=== PATIENT | female | born 1945 | race Caucasian/White ===

== ENCOUNTER 2018-03-08 15:10 | Inpatient (IN) | payer MEDICARE ==
[~2018-03-08] VITALS: Ht 167.6 cm; Wt 71.2 kg
[2018-03-08 15:14] VITALS: BP 150/114
[2018-03-08 15:37] LABS: ABSOLUTE BASOPHILS 0.1 thou/uL (0.0-0.2); ABSOLUTE EOSINOPHILS 0.2 thou/uL (0.0-0.7); ABSOLUTE LYMPHOCYTES 3.8 thou/uL (0.8-5.3); ABSOLUTE MONOCYTES 0.8 thou/uL (0.0-1.2); ABSOLUTE NEUTROPHILS 3.5 thou/uL (1.6-8.1); BASOPHILS 1.4 %; EOSINOPHILS 2.1 %; HEMATOCRIT 47.1 % (37.0-47.0); HEMOGLOBIN 15.8 gm/dL (12.0-15.0); LYMPHOCYTES 44.7 %; MCH 31.2 pg (26.0-34.0); MCHC 33.5 g/dL (28.0-37.0); MCV 93.1 fL (80.0-100.0); MONOCYTES 9.6 %; MPV 9.8 fl. (7.2-11.1); NUCLEATED RBCS 0 /100WBC; PLATELET COUNT* 217 thou/uL (150-400); POLYS 42.2 %; RBC 5.06 mil/uL (4.20-5.00); RDW-CV 14.2 % (10.5-14.5); WBC 8.4 thou/uL (4.0-11.0)
[2018-03-08 15:44] LABS: ANION GAP 8 mmol/L (7-16); BUN 20 mg/dL (7-18); CALCIUM 9.1 mg/dL (8.5-10.1); CHLORIDE 105 mmol/L (98-107); CO2 29 mmol/L (21-32); CREATININE 1.3 mg/dL (0.6-1.3); GLUCOSE 103 mg/dL (70-99); POTASSIUM 3.6 mmol/L (3.5-5.1); SODIUM 142 mmol/L (136-145)
[2018-03-08 15:45] LABS: APTT 26.1 Seconds (25.0-31.3); INR 1.1; PROTIME 10.3 Seconds (9.20-11.50)
[2018-03-08 15:55] LABS: ALBUMIN 4.1 g/dL (3.4-5.0); ALKALINE PHOSPHATASE 100 U/L (46-116); LIPASE 139 U/L (73-393); MAGNESIUM 1.9 mg/dL (1.8-2.4); NT-PRO BRAIN NAT PEPTIDE 1693 pg/mL (<300); SGOT 19 U/L (15-37); SGPT 21 U/L (30-65); TOTAL BILIRUBIN 0.9 mg/dL (<0.1-1.0); TOTAL PROTEIN 8.1 g/dL (6.4-8.2); TROPONIN-I LEVEL <0.06 ng/mL (<0.06)
--- NOTE | 2018-03-08 15:57 | EKG ---
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: BOGDAN : 1945 Requested By: Alistair Mendez Order Number: [id number] MD: Ernesto Kern Measurements Intervals [place] Rate: 143 P: [place]: QRS: -13 QRSD: 116 T: 91 QT: 318 QTc: 491 Interpretive Statements aflutter variable block Nonspecific intraventricular conduction delay Low voltage, extremity leads Repolarization abnormality, prob rate related No previous ECG available for comparison Electronically Signed On 03-08-2018 15:57:00 CDT by Ernesto Kern [email or web address] <ELECTRONICALLY SIGNED> By: Ernesto Kern MD, [facility] 03/08/18 1557 16 16 Ernesto Kern MD, FACC /EPI
[2018-03-08] MEDS ORDERED: LEVOTHYROXINE100 MC1 PO (16:51)
[2018-03-08] MEDS ORDERED: OMEPRAZOLE40 MG PO (16:52)
[2018-03-08] MEDS ORDERED: ZOCOR 20 MG TAB20 M1 PO (16:52)
[2018-03-08 19:39] VITALS: BP 154/91
--- NOTE | 2018-03-08 19:39 | NUR ---
CARDIOLOGY ANSWERING SERVICE CALLED ON ORDERED CONSULT. 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
[2018-03-08 20:00] VITALS: BP 141/98
--- NOTE | 2018-03-08 23:34 | NUR ---
PT ALERT ORIENTED. ADMIT TO 209 AT 1950. TELEMETRY SHOWS AFIB. CARDIZEM QTT AT 5 MG/HR. VOIDS PER BR. INITALLY REFUSED SCDS BUT NOW IS WEARING THEM. DR PICKARD NOTIFIED FOR ANTICOAGULATION ORDERS. NO ORDERS AT THIS TIME. WILL CONTINUE TO MONITOR.
[2018-03-09] VITALS: BP 123/87
[2018-03-09 04:26] VITALS: BP 130/77
--- NOTE | 2018-03-09 05:24 | NUR ---
PT HAD EPISOID OF VOMITING AND HEAD ACHE. DR PICKARD NOTIFIED. ORDERS FOR IBUPROFEN AND ZOFRAN. WAITING FOR PHARMACY TO FILL.
[2018-03-09 07:45] VITALS: BP 112/58
--- NOTE | 2018-03-09 07:45 | NUR ---
ASSUMED PT. CARE AND RECEIVED REPORT AT 729. PT A/OX4, VSS, MONITOR ON TRACING AFIB, RATE CONTROLLED WITH CARDIZEM GTT AT 5ML/HR. PT. DENIES CP/NAUSE AT THIS TIME, HOWEVER C/O HEADACHE. FULL ASSESSMENT COMPLETED, REFER TO CHARTING. DISCUSSED PLAN OF CARE, VERBALIZED UNDERSTANDING. PT. NPO FOR CV CONSULT. CALL LIGHT IN REACH, WILL CONTINUE WITH PLAN OF CARE.
[2018-03-09 12:00] VITALS: BP 129/78
--- NOTE | 2018-03-09 14:40 | NUR ---
Pt is A&O. Resides at home with her , he is at bedside. Independent with ADLS, continues to cook, clean and drive. Pt sleeps with a cpap at night, provided through [facility]. No hx of HH or SNF. Scheduled to have a stress test today. Goal is to [place] at [place], no needs anticipated.
--- NOTE | 2018-03-09 14:45 | 2DMMODE ---
[place] [address] 2 D/M-MODE ECHOCARDIOGRAM Name: SHAWNEE MACARIO Room: [address] IN [facility]#: [id number] Admission: 03/08/18 Attend Phys: Usman Fam Discharge: Date of : 49 Date of Service: 03/09/18 1444 Report #: [id number] THIS REPORT FOR: //name// APPROVED REPORT Study performed: 03/09/2018 11:31:06 EXAM: Comprehensive 2D, Doppler, and color-flow Echocardiogram Patient Location: In-Patient Room #: 209 Status: routine BSA: 1.84 HR: 83 bpm BP: 112/58 mmHg Rhythm: Atrial Fibrillation Other Information Study Quality: Good Indications Atrial Fibrillation Pericardial Effusion 2D Dimensions LVEF(%): 72.14 (>50%) IVSd: 12.65 (7-11mm) LVOT Diam: 20.77 (18-24mm) LVDd: 39.13 mm PWd: 9.61 (7-11mm) Ascending Ao: 33.55 (22-36mm) LVDs: 23.19 (25-40mm) Aortic Root: 32.60 mm Cramer's LVEF: 72.14 % Volumes Left Atrial Volume (Systole) LA ESV Index: 62.60 mL/m2 Aortic Valve AoV Peak Raymundo.: 1.18 m/s AO Peak Gr.: 5.55 mmHg LVOT Max P.52 mmHg AO Mean Gr.: 3.10 mmHg LVOT Mean P.19 mmHg LVOT Max V: 0.79 m/s AO V2 VTI: 22.36 cm LVOT Mean V: 0.50 m/s ROSEANN (VTI): 2.66 cm2 LVOT V1 VTI: 17.59 [place] [address] 2 D/M-MODE ECHOCARDIOGRAM Name: SHAWNEE MACARIO Room: [address] IN [facility]#: [id number] Admission: 03/08/18 Attend Phys: Usman Fam Discharge: Date of : 49 Date of Service: 03/09/18 1444 Report #: [id number] MV Decel. Time: 287.95 ms MV PHT: 83.50 ms MVA (PHT): 2.63 cm2 TDI Medial E' Raymundo.: 0.08 m/s Lateral E' Raymundo.: 0.09 m/s Pulmonary Valve PV Peak Raymundo.: 0.78 m/s PV Peak Gr.: 2.43 mmHg Tricuspid Valve TR Peak Gr.: 25.41 mmHg RVSP: 30.00 mmHg Left Ventricle The left ventricle is normal size. There is normal LV segmental wall motion. There is normal left ventricular wall thickness. Left ventricular systolic function is normal. The left ventricular ejection fraction is within the normal range. LVEF is 55-60%. This study is not technically sufficient to allow evaluation of the LV diastolic function due to atrial fibrillation. Right Ventricle The right ventricle is normal size. The right ventricular systolic function is normal. Atria Left atrium is mildly dilated. The right atrium size is normal. Aortic Valve Mild aortic valve sclerosis. No aortic regurgitation is present. There is no aortic valvular stenosis. Mitral Valve There is mitral annular calcification. Mild mitral regurgitation. No evidence of mitral valve stenosis. Tricuspid Valve The tricuspid valve is normal in structure. Trace tricuspid regurgitation. The RVSP is 30-35 mmHg. Pulmonic Valve The pulmonary valve is normal in structure. [place] [address] 2 D/M-MODE ECHOCARDIOGRAM Name: SHAWNEE MACARIO Room: [address]#: [id number] Admission: 03/08/18 Attend Phys: Usman Fam Discharge: Date of : 49 Date of Service: 03/09/18 1444 Report #: [id number] Great Vessels The aortic root is normal in size. IVC is normal in size and collapses with >50% inspiration Pericardium Mild posterior pericardial effusion. <Conclusion> The left ventricle is normal size. There is normal left ventricular wall thickness. Left ventricular systolic function is normal. The left ventricular ejection fraction is within the normal range. LVEF is 55-60%. This study is not technically sufficient to allow evaluation of the LV diastolic function due to atrial fibrillation. The right ventricle is normal size. Left atrium is mildly dilated. Mild aortic valve sclerosis. No aortic regurgitation is present. There is no aortic valvular stenosis. There is mitral annular calcification. Mild mitral regurgitation. No evidence of mitral valve stenosis. The tricuspid valve is normal in structure. IVC is normal in size and collapses with >50% inspiration Mild posterior pericardial effusion. There is normal LV segmental wall motion. <ELECTRONICALLY SIGNED> By: Pipo Woods MD, FACC 03/09/18 1444 1444 1444 Pipo Woods MD, FACC /INF
--- NOTE | 2018-03-09 17:11 | CARDNUC ---
[place] [address] CARDIAC NUCLEAR IMAGING REPORT Name: SHAWNEE MACARIO Room: [address] IN [facility]#: [id number] Admission: 03/08/18 Attend Phys: Usman Fam Discharge: Date of : 49 Date of Service: 03/09/18 1711 Report #: [id number] THIS REPORT FOR: //name// APPROVED REPORT Study performed: 03/09/2018 11:52:00 Exam: Nuclear Stress Test Indication: chest pain, dyspnea Patient Location: In-Patient Room #: 209 Stress Tech: Miranda Yañez Stress Nurse: Yocasta Garcia RN Ht: 5 ft 6 in Wt: 168 lbs BSA: 1.86 m2 BMI: 27.11 Medical History Medical History: hyperlipidemia, hypertension, a fib Medications: diltiazem, apixaban, atorvastatin Allergies: celecoxib, penicilllin Cardiac Risk Factors: age, hyperlipidemia, hypertension Previous Cardiac Procedures: none Exercise History: Physically active Stress Test Details Stress Test: Pharmacologic stress testing performed using 0.4 mg of regadenoson per 5 mL given IV over 10 seconds. Reason for pharmacologic stress test: physical limitation. Reversal agent Aminophyline 50 mg, given intravenously for hypertension. HR Resting HR: 77 bpm Max Heart Rate (APMHR): 150 bpm Max HR Achieved: 103 bpm Target HR (85% APMHR): 127 bpm % of APMHR: 68 Recovery HR: 89 bpm HR response to stress: Normal HR response to stress BP Resting BP: 123/100 mmHg Max BP: 257/88 mmHg BP response to stress: Abnormal hypertensive response [place] [address] CARDIAC NUCLEAR IMAGING REPORT Name: SHAWNEE MACARIO Room: [address]#: [id number] Admission: 03/08/18 Attend Phys: Usman Fam Discharge: Date of : 49 Date of Service: 03/09/18 1711 Report #: [id number] Resting ECG: Atrial Fibrillation Stress ECG: Atrial Fibrillation ST Change: None Recovery ECG: Atrial Fibrillation Recovery ST Change: None Clinical Reason for Termination: Completed protocol Stress Symptoms: None Exercise duration: 0 min sec Exercise capacity: 1 METs Functional Aerobic Impairment 69% Nurse Comments bps are questionable. Bps took long time to take and high numbers resulted. manual bp taken and 140/82 obtained Stress ECG Conclusion negative ecg for ischemia NM EXAM: Myocardial Perfusion REST/STRESS Imaging Protocol: Rest Tc-99m/Stress Tc-99m 1 day Resting Data Rest SPECT myocardial perfusion imaging was performed in supine position 45 minutes following the intravenous injection of 12 mCi of Tc-99m Sestamibi. Time of rest injection: 1340 Date: 03/09/2018 The images were gated to evaluate regional wall motion and calculate left ventricular ejection fraction. Administration Route: IV Administration Site: Right AC Pharmacologic Stress Pharmacologic stress test was performed by injecting Regadenoson 0.4 mg IV push followed by the intravenous injection of 36 mCi of Tc-99m Sestamibi. Time of stress injection: 1520 Date: 03/09/2018 Administration Route: IV Administration Site: Right AC Gated Stress SPECT was performed 45 minutes after stress injection. The images were gated to evaluate regional wall motion and calculate left ventricular ejection fraction. Prone [place] [address] CARDIAC NUCLEAR IMAGING REPORT Name: SHAWNEE MACARIO Room: [address] IN [facility]#: [id number] Admission: 03/08/18 Attend Phys: Usman Fam Discharge: Date of : 49 Date of Service: 03/09/18 1711 Report #: [id number] Study Quality Study: Fair Artifact: Mild Increased GI uptake Lung Uptake: Normal Study Data At rest, the left ventricular ejection fraction was 64%.. Post stress, the left ventricular ejection was 78%.. SSS: 12 SRS: 10 SDS: 2 TID = 1.01. Perfusion Review of SPECT images reveals a small partially reversible mid lateral defect. It is severe intensity. No other defects are seen. Images were reviewed using Milyoni. Wall Motion mild lateral hypokinesis Nuclear Conclusion ECG Findings: negative for ischemia Clinical Findings: negative for ischemia Nuclear Findings: positive for ischemia Exercise Capacity: not assessed Left Ventricular Function: normal Risk Study: moderate There is a small lateral defect with equal parts of ischemia,and infarct. Normal LV function. <Conclusion> negative ecg for ischemia <ELECTRONICALLY SIGNED> By: Ernesto Kern MD, FACC 03/09/181710 10 10 Ernesto Kern MD, FACC /INF
[2018-03-09 18:30] VITALS: BP 88/50
[2018-03-09 20:00] VITALS: BP 107/63
--- NOTE | 2018-03-09 20:00 | NUR ---
PT. COMPLETED ECHO AND STRESS TEST THIS SHIFT, TOLERATED WELL. CONTINUES TO COMPLAIN OF HEADACHE THIS AFTERNOON, TREATED WITH PO TYLENOL WITH MODERATE RELIEF NOTED. PT. GIVEN FLECANIDE LOADING DOSE. ATTEMPTED TO SWITCH FROM IV CARDIZEM TO PO, HOWEVER AT BP CHECK PRESSURE WAS LOW AT 88/50. IV CARDIZEM STOPPED AND PO HELD AT THIS TIME. PT. REPORTS BEING SLEEPY DURING THIS TIME. HOURLY ROUNDING COMPLETED THROUGH OUT THE DAY FOR PT. SAFETY. BEDSIDE REPORT COMPLETED WITH NOC RN PRECIOUS TO CONTINUE MONITORING. BP SLIGHTLY BETTER AT BEDSIDE REPORT UPON CHECK.
[2018-03-10] VITALS (9 sets, daily range): BP systolic 109–139; BP diastolic 56–91
--- NOTE | 2018-03-10 04:48 | NUR ---
PATIENT PARTIALLY PROGRESSING TOWARDS GOALS: CARDIZEM GTT HAS REMAINED OFF DUE TO SOFT BP'S, HOWEVER, RATE HAS BEEN CONTROLLED WITH PO FLECAINIDE. PATIENT REMAINS ON ROOM AIR WITH SATS >92%. PATIENT'S HEADACHE RELIEVED WITH IBUPROFEN. PATIENT HAS SLEPT A MAJORITY OF SHIFT WITH NO CONCERNS OR REQUESTS. HOURLY ROUNDING OBSERVED. CALL LIGHT WITHIN REACH
--- NOTE | 2018-03-10 18:05 | NUR ---
ASSUMED CARE OF PT THIS AM ASSESSED AND DOCUMENTED. PT IS ON CARDIAC MONITER TRACING AFIB. SHE IS A&O WITH NO C/O PAIN. PT IS UP AD B[place]. VSS WNL. PT IS AFEBRILE AND ON ROOM AIR. EDUCATION GIVEN ON DEMAND. HOURLY ROUNDING COMPLETE.
--- NOTE | 2018-03-10 21:57 | NUR ---
2034 CALLED TO PT ROOM C/O CP SHARP IN MID CHEST RADIATE TO BACK. PLACE PT ON 2L NC PAIN 8/. TOOK SET OF VS SEE INTERVENTIONS. 2044 GIVEN FIRST NITRO SL. PT PAIN AT THE TIME 6/10 MORE LEFT NECK PAIN. PT EKG DONE AT 2045. 2049 ANOTHER NITRO SL GIVEN PAIN NOW /10. 2099 LEFT SHOULDER PAIN /10 ONE MORE NITRO SL GIVEN. CALL PLACED TO [facility]. STILL AWAITING CALL BACK. CHECKED ON PT AGAIN AT 2144 NO PAIN AT ALL. RESTING COMFORTABLE IN BED READING A BOOK.
[2018-03-11 04:00] VITALS: BP 120/52
[2018-03-11 04:20] LABS: ABSOLUTE BASOPHILS 0.1 thou/uL (0.0-0.2); ABSOLUTE EOSINOPHILS 0.2 thou/uL (0.0-0.7); ABSOLUTE LYMPHOCYTES 2.2 thou/uL (0.8-5.3); ABSOLUTE MONOCYTES 0.6 thou/uL (0.0-1.2); ABSOLUTE NEUTROPHILS 3.4 thou/uL (1.6-8.1); BASOPHILS 1.3 %; EOSINOPHILS 3.1 %; HEMATOCRIT 42.2 % (37.0-47.0); HEMOGLOBIN 14.1 gm/dL (12.0-15.0); LYMPHOCYTES 33.6 %; MCH 31.3 pg (26.0-34.0); MCHC 33.4 g/dL (28.0-37.0); MCV 93.5 fL (80.0-100.0); MONOCYTES 9.8 %; MPV 9.6 fl. (7.2-11.1); NUCLEATED RBCS 0 /100WBC; PLATELET COUNT* 182 thou/uL (150-400); POLYS 52.2 %; RBC 4.51 mil/uL (4.20-5.00); RDW-CV 13.8 % (10.5-14.5); WBC 6.5 thou/uL (4.0-11.0)
--- NOTE | 2018-03-11 04:29 | NUR ---
PT CURRENTLY RESTING WITH CPAP ON. PT AFIB/FLUTTER ON MONITOR. PT HAS HAD NO OTHER C/O CP SINCE THAT ONE EPISODE EARLY ON IN SHIFT. PT PENDING AM LABS TO BE REVIEWED.
[2018-03-11 04:53] LABS: ALBUMIN 3.6 g/dL (3.4-5.0); CALCIUM 8.7 mg/dL (8.5-10.1); CREATININE 1.2 mg/dL (0.6-1.3); MAGNESIUM 1.9 mg/dL (1.8-2.4); TOTAL BILIRUBIN 0.8 mg/dL (<0.1-1.0); TOTAL PROTEIN 6.7 g/dL (6.4-8.2)
[2018-03-11 06:19] VITALS: BP 124/79
[2018-03-11 07:58] VITALS: BP 126/87
[2018-03-11 11:25] VITALS: BP 98/59
--- NOTE | 2018-03-11 12:44 | NUR ---
CALLED PHARMACY SPOKE WITH MEGAN. HUERTA GENERIC TOMER ON DEC.
--- NOTE | 2018-03-11 13:21 | EKG ---
[place] [address] ELECTROCARDIOGRAM REPORT Name: SHAWNEE MACARIO Room: [address] ADM IN .R.#: [id number] Admission: 03/08/18 Attend Phys: David Darden Discharge: Date of : 49 Report #: [id number] THIS REPORT FOR: //name// 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1945 Requested By: Usman Fam Order Number: [id number] Reading MD: Ernesto Kern Measurements Intervals [place] Rate: 83 P: [place]: QRS: -74 QRSD: 127 T: 77 QT: 449 QTc: 528 Interpretive Statements Atrial flutter IVCD, consider atypical RBBB Inferior infarct, acute Compared to ECG 03/08/2018 15:17:28 Myocardial infarct finding now present Early repolarization no longer present Electronically Signed On 03-11-2018 13:21:15 CDT by Ernesto Kern [email or web address] <ELECTRONICALLY SIGNED> By: Ernesto Kern MD, FAC 03/11/18 1321 45 45 Ernesto Kern MD, [facility] /EPI
[2018-03-11 16:17] VITALS: BP 112/79
--- NOTE | 2018-03-11 17:40 | NUR ---
PT HAS RESTED IN HER ROOM WITH FAMILY AT BEDSIDE. PT HAS NOT C/O PAIN OR NAUSEA. EDUCATION GIVEN ON DEMAND. HOURLY ROUNDING COMPLETE.
[2018-03-11 20:00] VITALS: BP 114/66
[2018-03-12] VITALS (15 sets, daily range): BP systolic 86–135; BP diastolic 52–83
--- NOTE | 2018-03-12 06:10 | NUR ---
PATIENT PROGRESSING TOWARDS GOALS: NO REPORTS OF CHEST PAIN, OR PAIN IN GENERAL, THROUGHOUT SHIFT. PATIENT NPO FOR CARDIAC CATH TODAY. CONSENT SIGNED AND IN CHART. PATIENT REMAINS UP AD [place]. 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 HOURLY ROUNDING OBSERVED. CALL LIGHT WITHIN REACH
--- NOTE | 2018-03-12 07:27 | CON ---
[address] [address] CONSULTATION Name: SHAWNEE MACARIO Room: [address] IN .R.#: [id number] Admission: 03/08/18 Attend Phys: David Darden Discharge: Date of : 49 Report #: [id number] THIS REPORT FOR: //name// CC: Ana Laura Fam DATE OF SERVICE: 03/09/2018 REQUESTING PHYSICIAN: Usman Fam DO REASON FOR CONSULTATION: Abnormal CT scan. DISCUSSION: The patient is a very pleasant 72-year-old nonsmoking woman with no prior history of known pulmonary disease. She has generally not felt well for the last several weeks, if not longer. She had been getting evaluated for hematuria, was seeing Dr. Rojas. She had a CT scan done of her abdomen and pelvis on 02/27/2018. Per that report, it did show small bilateral pleural effusions as well as a pericardial effusion. Had septal thickening in the lung bases suggesting interstitial edema. Did have a lesion in her liver. It is unknown if it was potential for a more worrisome mass. She was told to follow up with her primary care physician in regards to the findings noted. She notes she saw a nurse practitioner yesterday. Those findings, she was sent to the Emergency Department. While in the ED, was evaluated and actually found to have atrial fibrillation with a rapid ventricular response. She has no prior history of known pulmonary or heart disease. She is a nonsmoker. She believes she had an echocardiogram 7-8 years ago and things were fine. She has had multiple EKGs over the years given she has had multiple surgeries. She is not aware of any palpitations. She has had some "heaviness." It has been worse over the last couple of weeks. She was attributing it to her CPAP that she wears for her obstructive sleep apnea. Has had just minimal cough. No hemoptysis. Overall, she has felt much more tired and fatigued. When she runs out of energy, when she exerts herself, she is describing it more, just feeling very tired rather than true shortness of breath. No prior history of asthma. She has no prior history of any malignancies. She has had neck surgery, also lumbar spine surgery, bilateral knee surgeries, hysterectomy. She gets regular colonoscopies as she does have polyps, none have been malignant. 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 She has obstructive sleep apnea, has also had carpal tunnel surgery, bunion surgery. HOME MEDICATIONS: Levothyroxine, omeprazole, [place] [address] CONSULTATION Name: SHAWNEE MACARIO Room: [address] IN .R.#: [id number] Admission: 03/08/18 Attend Phys: David Darden Discharge: Date of : 49 Report #: [id number] ALLERGIES: CELEBREX AND PENICILLIN. SOCIAL HISTORY: Nonsmoker. She is . She and her moved here from the [facility] less than a year ago. Before she retired, she worked at [email or web address]. FAMILY HISTORY: Negative for cancers or thromboembolic disease. REVIEW OF SYSTEMS: A 12-point ROS was done. Note positives above. She notes she is always "clammy." No documented fevers. Appetite has been fair. Denies any difficulty swallowing. Has had the hematuria as noted. No issues with swelling in lower extremities and no palpitations. No syncopal episodes. She does have some chronic arthritic pain in her knees. She has had some heaviness in her chest, she points to the anterior and some over to the left side. PHYSICAL EXAMINATION: GENERAL APPEARANCE: The patient is a woman who looks stated age. Alert, cooperative. She is in no acute distress at rest. is at the bedside. HEENT: Head is normocephalic. Sclerae are nonicteric. Mucous membranes are moist. NECK: Negative for adenopathy. Neck veins are not prominent. Trachea is midline. There is no stridor heard. HEART: Irregularly irregular. No S3 is heard. LUNGS: Reveal a few bibasilar crackles. No wheezing is heard. Excursion is equal. No dullness to percussion. ABDOMEN: Soft, without appreciable hepatosplenomegaly. There is no guarding or rebound tenderness. No clubbing. Radial pulses are present. Lower extremities are negative for any significant edema. No calf tenderness. She does have SCDs in place. LABORATORY DATA AND X-RAY FINDINGS: I did review the report of her CT abdomen and pelvis, which was done through the urologist's office on 02/27/2018. Chest x-ray done yesterday, which was a portable study showed cardiomegaly, but no other acute findings noted. A CT angiogram was done. No pulmonary emboli were seen. Does have pericardial effusion noted. No masses noted. Does not have any significant pleural effusions. Does have some mild peribronchial thickening. She does reflux contrast into the inferior vena cava. IMPRESSION: 1. Atrial fibrillation/flutter with rapid ventricular response. Heart rate is down this morning. 2. Pericardial effusion. Etiology not clear. No underlying history of prior issues related to malignant causes. Possibly could be viral. 3. History of hematuria, had been ongoing evaluation with urology. 4. History of sleep apnea, compliant with CPAP. [facility] [address] [place] [address] CONSULTATION Name: MACARIOSHAWNEE S Room: [address] IN [facility].#: [id number] Admission: 03/08/18 Attend Phys: David Darden Discharge: Date of : 49 Report #: [id number] RECOMMENDATIONS: 1. Needs echocardiogram done. 2. Agree with cardiology seeing the patient. 3. We will also assess NATA, rheumatoid factor, CRP. 4. Findings in her lungs are fairly nonspecific, probably related to whatever is triggering her cardiac arrhythmias and pericardial effusion. 5. Continue with home CPAP unit while sleeping. <ELECTRONICALLY SIGNED> By: Collette Robles MD 03/12/18 0727 1116 1942Collette Robles MD /nt
--- NOTE | 2018-03-12 14:55 | NUR ---
Pt scheduled for BRIANNE tomorrow, cath completed today.
--- NOTE | 2018-03-12 15:43 | NUR ---
RECEIVED REPORT FROM PRECIOUS FRANKLIN. ASSUMED CARE OF PT AROUND 0730. PT A&O X4, VSS, O2 SAT 93% ON RA. 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 AM ASSESSMENT AND VITALS COMPLETED CHARTED. IV TO RIGHT AC INTACT AND INFUSING IVF. PT WENT DOWN TO CARDIAC CATH THIS AM, ACCESS THROUGH RIGHT RADIAL. SITE IS DRY, FREE FROM BLEEDING. VASC BAND NOW HAS ALL AIR LET OUT, IN PROCESS OF REMOVING BAND PER PROTOCOL. VITALS PER PROTOCOL, SEE CHARTING. PT NOTED TO HAVE SOFT BP'S POST CATH - LOWEST DROPPED TO 86/54 AND HEART RATE HAS DROPPED INTO THE HIGH 30'S SEVERAL TIMES. PT FEELS LIGHT HEADED AND HAS HEADACHE. SPOKE TO HALEY DOE PSYCHIATRIC NP ON PHONE - SHE CAME TO SEE PT AND NOTIFIED DR MURRAY. ORDERS RECEIVED FOR 500ML FLUID BOLUS. PT GIVEN TYLENOL FOR HEADAHCE, AWAITING REASSESSMENT. PT EATING AND DRINKING WITHOUT ISSUE. PLAN IS FOR PT TO HAVE BRIANNE AND CARDIOVERSION TOMORROW. PT CURRENTLY RESTING IN BED. CALL LIGHT IS WITHIN REACH. FALL PRECAUTIONS ARE IN PLACE, LOW RISK. HORULY ROUNDING PERFORMED. WCTM.
--- NOTE | 2018-03-12 18:57 | NUR ---
PT HEADACHE RESOLVED WITH THE PO TYLENOL. DIZZINESS HAS SUBSIDED. BP UP TO NORMAL RANGE AND STABLE NOW. PT REMAINS A&OX4. AT BEDSIDE. PT EATING AND DRINKING WITHOUT ISSUE. VASCBAND NOW OFF AND GAUZE WITH TEGADERM APPLIED. SITE REMAINS FREE FROM BLEEDING. LIMB ALERT PLACED ON RIGHT ARM. PT UP TO BATHROOM TO VOID, NO ISSUES. PT REQUESTING LAXATIVE - WILL GIVE. IV SALINE LOCKED. PT CURRENTLY SITTING UP IN BED WORKING ON A CROSSWORD PUZZLE. LOW FALL RISK PRECAUTIONS IN PLACE. CALL LIGHT IS WITHIN REACH. HOURLY ROUNDING PERFORMED.
[2018-03-12 19:11] LABS: ANA INTERPRETATION Negative (())
--- NOTE | 2018-03-12 19:18 | CARD ---
[address] [address] CARDIAC CATH REPORT Name: MACARIOSHAWNEE Екатерина Room: [address] IN [facility]#: [id number] Admission: 03/08/18 Attend Phys: David Darden Discharge: Date of : 49 Report #: [id number] THIS REPORT FOR: //name// APPROVED REPORT Study performed: 03/12/2018 11:19:20 Patient Details Patient Status: In-Patient Room #: The patient is a 72 year-old female Event Personnel Gonzalez Michelle Junior Recruiter, Marlyn Jj RN Light Rail Signal Technician, Konrad Shaffer (R) Ziggy Diaz Mindy RTR Monitor Procedures Performed Art Access - R radial artery Left Heart Cath w/LT VGram [id number] LHCLV Hemostasis with Hemoband Indication Atrial fibrillation, Positive stress test Risk Factors Hypercholesterolemia Admission/Lab Medications/Medications given during procedure Heparin Unfract. Procedure Narrative The patient was brought electively to the Cardiac Catheterization Laboratory and was prepped and draped in a sterile manner. The right wrist was infiltrated with 1% Lidocaine subcutaneous anesthesia. A Slender Glidesheath sheath was inserted into the right radial artery. Coronary angiography was performed using coronary diagnostic catheters. The right coronary system was accessed and visualized with a 6FR JR4 catheter. The left coronary system was accessed and visualized with a 6FR JL4 catheter. The left ventricle was accessed and visualized with a 6FR Pigtail catheter. Left ventricular/Aortic Valve gradient assessed via catheter pullback. Left ventriculogram was performed in CHEW projection. Closure device was deployed with a 6 Fr vascband. The patient tolerated the procedure well and there were no complications associated with the procedure. [place] [address] CARDIAC CATH REPORT Name: SHAWNEE MACARIO Екатерина Room: [address]#: [id number] Admission: 03/08/18 Attend Phys: David Darden Discharge: Date of : 49 Report #: [id number] Intraoperative Conscious Sedation Sedation start time: 11:50 Case end Time: 12:15 Fentanyl 25 mcg Versed 2 mg Fluoro Time: 2.4 minutes Dose: DAP 25991 cGycm2 624.85 mGy Contrast Type and Amount: Visipaque 130 ml Diagnostic Cath Left Main 0% stenosis LAD 30% distal stenosis Diagonal 1 60% proximal stenosis Circumflex 0% stenosis Right Coronary 30% mid stenosis Left Ventriculography The left ventricle is normal in size with normal contractility. The left ventricular ejection fraction is estimated to be 60-65%. Left ventricular wall motion abnormalities are not present. There is no mitral insufficiency. Hemodynamics The aortic pressure is 106/64 mmHg with a mean of 82 mmHg. The left ventricular pressure is 101/0 mmHg with a mean of mmHg. The left ventricular end diastolic pressure is 8 mmHg. There was no gradient across the aortic valve upon pullback. Pullback from the left ventricle to the aorta revealed no gradient across the aortic valve. Conclusion 1. mild cad with a 60% stenosis noted of the diagonal branch of the lad Recommendations Aggressive Medical Therapy <ELECTRONICALLY SIGNED> By: Gonzalez Michelle MD, [facility] 03/12/181917 17 17Dakenyon Michelle MD, [facility] /INF
[2018-03-13] VITALS (16 sets, daily range): BP systolic 98–154; BP diastolic 44–97
--- NOTE | 2018-03-13 04:39 | NUR ---
PATIENT PROGRESSING TOWARDS GOALS: PATIENT DENIES PAIN AND DISCOMFORT THIS SHIFT. ON ROOM AIR WITH SATS >92%. VSS. NPO FOR BRIANNE CARDIOVERSION 03/13. RIGHT RADIAL CATH SITE DRESSING C/D/I. PATIENT COMPLIANT WITH POST RADIAL CATH PRECAUTIONS. HOURLY ROUNDING OBSERVED. CALL LIGHT WITHIN REACH
--- NOTE | 2018-03-13 17:16 | TEE ---
[place] [address] TRANSESOPHAGEAL ECHOCARDIOGRAM Name: SHAWNEE MACARIO Room: [address] IN [facility]#: [id number] Admission: 03/08/18 Attend Phys: Usman Fam Discharge: Date of : 49 Date of Service: 03/13/18 1715 Report #: [id number] THIS REPORT FOR: //name// APPROVED REPORT Study performed: 03/13/2018 16:06:33 EXAM: Transesophageal Echocardiogram Patient Location: In-Patient Room #: [facility] Status: routine BSA: 1.85 HR: 102 bpm BP: 153/96 mmHg Rhythm: Atrial Fibrillation Other Information Study Quality: Good Indications Atrial Fibrillation Echo Enhancing Agent Indication: Rule out Shunt Agent(s) / Amount(s) Used: Agitated Saline 10 cc Procedure After obtaining informed consent, patient underwent transesophageal echo in the [employer]. Type of Sedation : Conscious Sedation Sedation was administered by Marlyn Jj. Sedation start time: 1605 Case end Time: 1632 Sedation was achieved intravenously with: Versed (3) Fentanyl (50) Transesophageal probe was inserted and advanced into esophagus without difficulty by Tomi Pineda MD, FACC. Echo enhancement indication: R/O Septal defect. Echo enhancement agent administered: Agitated Saline The BRIANNE was performed without complications. Synchronized Cardioversion attempted: Unsuccessful Throughout the procedure, the blood pressure, pulse oximetry, cardiac rhythm, and rate were monitored. The patient tolerated the procedure without adverse effects. Recovery from conscious sedation was uneventful [place] [address] TRANSESOPHAGEAL ECHOCARDIOGRAM Name: SHAWNEE MACARIO Room: [address]#: [id number] Admission: 03/08/18 Attend Phys: Usman Fam Discharge: Date of : 49 Date of Service: 03/13/18 1715 Report #: [id number] Left Ventricle The left ventricle is normal size. There is normal LV segmental wall motion. Mild to moderate concentric left ventricular hypertrophy. Left ventricular systolic function is normal. LVEF is 60-65%. Right Ventricle The right ventricle is normal size. The right ventricular systolic function is normal. Atria There is no mass or thrombus suspected in the left atrium. Interatrial septum is intact without evidence of ASD or PFO. The right atrium size is normal. Aortic Valve The aortic valve is normal in structure. No aortic regurgitation is present. There is no aortic valvular stenosis. Mitral Valve The mitral valve is normal in structure. Mild to moderate mitral regurgitation. No evidence of mitral valve stenosis. Tricuspid Valve The tricuspid valve is normal in structure. Trace tricuspid regurgitation. Pulmonic Valve The pulmonary valve is normal in structure. There is no pulmonic valvular regurgitation. Great Vessels The aortic root is normal in size. Pericardium There is no pericardial effusion. <Conclusion> The left ventricle is normal size. Mild to moderate concentric left ventricular hypertrophy. Left ventricular systolic function is normal. LVEF is 60-65%. [place] [address] TRANSESOPHAGEAL ECHOCARDIOGRAM Name: SHAWNEE MACARIO Room: [address] IN [facility]#: [id number] Admission: 03/08/18 Attend Phys: Usman Fam Discharge: Date of : 49 Date of Service: 03/13/181714 Report #: [id number] Interatrial septum is intact without evidence of ASD or PFO. No thrombus is visualized in the left atrium or appendage. <ELECTRONICALLY SIGNED> By: Tomi Pineda MD, FACC 03/13/181714 14 14 Tomi Pineda MD, FACC /INF
--- NOTE | 2018-03-13 18:44 | NUR ---
RECEIVED REPORT FROM PRECIOUS FRANKLIN. ASSUMED CARE OF PT AROUND 0730. PT A&O X4, VSS, O2 SAT 95% ON RA. FENCE ERECTOR SUPERVISOR IN PLACE TRACING AFLUTTER WITH NO CHANGES THIS SHIFT. AM ASSESSMENT AND VITALS COMPLETED CHARTED. IV TO RIGHT AC INTACT AND SALINE LOCKED. PT WENT DOWN FOR BRIANNE AND CARDIOVERSION LATE THIS AFTERNOON. CARDIOVERSION WAS UNSUCCESSFUL. PT TO REMAIN OVERNIGHT FOR OBSERVATION. PT ABLE TO EAT DINNER WITH NO ISSUES. PT ABLE TO BE UP AD [place]. PT VOIDING WITHOUT ISSUE. HAS BEEN AT BEDSIDE THROUGHOUT THE SHIFT. PT HAS DENIED PAIN OR DISCOMFORT THIS SHIFT. PT CURRENTLY SITTING UP IN BED VISITING WITH GRANDDAUGHTERS. LOW FALL RISK PRECAUTIONS IN PLACE. CALL LIGHT IS WITHIN REACH, HOURLY ROUNDING PERFORMED.
[2018-03-14 00:28] VITALS: BP 144/102
--- NOTE | 2018-03-14 03:13 | NUR ---
PT ALERT ORIENTED. UP AD [place] IN ROOM. R RADIAL DRSG D/I. R ARM LIMB ALERT ON. TELEMETRY SHOWS AFIB/FLUTTER. WILL CONTINUE TO MONITOR.
[2018-03-14 03:56] VITALS: BP 129/89
[2018-03-14 08:03] VITALS: BP 121/91
[2018-03-14 12:02] VITALS: BP 107/82
[2018-03-14 12:55] VITALS: BP 126/79
[2018-03-14] MEDS ORDERED: FLECAINIDE ACET50 M1 PO (14:17)
[2018-03-14] MEDS ORDERED: COLACE100 MG PO (14:18)
[2018-03-14] MEDS ORDERED: ELIQUIS5 MG PO (14:19)
[2018-03-14] MEDS ORDERED: CARDIZEM CD120 MG PO (14:20)
[2018-03-14] MEDS ORDERED: TYLENOL325 MG PO (14:24)
--- NOTE | 2018-03-14 15:31 | NUR ---
ASSUMED CARE OF PT AT 0715 THIS MORNING AFTER GETTING BEDSIDE REPORT FORM CLAIMS ADMINISTRATOR NURSE. PT CONTINUED TO BE A&O X4 CALM AND COOPERATIVE. PT VSS ON ROOM AIR TRACING A FIB ON THE MONITOR. PT HAD NO C/O PAIN OR DISTRESS TODAY. PT WAS DISCHARGED HOME TO SELF CARE. PT AND VERBALIZED UNDERSTANDING OF DC INSTRUCTIONS THAT INCLUDED F/U CARE AND MEDICATION MANAGEMENT. IV AND LOADING UNIT OPERATOR SEATING REMOVED PRIOR TO DISCHARGE. PT TOOK ALL PERSONAL BELONGINGS AND ALL PRESCRIPTIONS AT TIME OF DISCHARGE.
[2018-04-04] MEDS ORDERED: MULTAQ 400 MG400 MG PO (09:59)
[2018-05-24] MEDS ORDERED: PACERONE 200 M200 M1 PO (11:43)
== END 2018-03-14 15:00 | disposition home or self-care (01) | DRG 286 ==
LOC: M.ERS 15:10 → M.TBA-ER 16:33 → M.2W 16:33
PROVIDERS: Emergency Medicine Emergency Medical Services; Internal Medicine Critical Care Medicine; Internal Medicine Pulmonary Disease; ADMIT Internal Medicine
PROC: B2151ZZ Fluoroscopy of Left Heart using Low Osmolar Contrast (ICD-10-PCS; principal; 2018-03-12)
PROC: 4A023N7 Measurement of Cardiac Sampling and Pressure, Left Heart, Percutaneous Approach (ICD-10-PCS; principal; 2018-03-12)
PROC: B2111ZZ Fluoroscopy of Multiple Coronary Arteries using Low Osmolar Contrast (ICD-10-PCS; principal; 2018-03-12)
DX: I48.1 Persistent atrial fibrillation (principal); I50.33 Acute on chronic diastolic (congestive) heart failure; D68.59 Other primary thrombophilia; I31.3 Pericardial effusion (noninflammatory); G47.33 Obstructive sleep apnea (adult) (pediatric); D49.2 Neoplasm of unspecified behavior of bone, soft tissue, and skin; E78.5 Hyperlipidemia, unspecified; E03.9 Hypothyroidism, unspecified; I10 Essential (primary) hypertension; R32 Unspecified urinary incontinence; B19.20 Unspecified viral hepatitis C without hepatic coma; I25.10 Atherosclerotic heart disease of native coronary artery without angina pectoris; R31.9 Hematuria, unspecified; Z88.3 Allergy status to other anti-infective agents; Z88.0 Allergy status to penicillin; Z90.710 Acquired absence of both cervix and uterus; Z98.890 Other specified postprocedural states; Z79.01 Long term (current) use of anticoagulants; Z79.899 Other long term (current) drug therapy

== ENCOUNTER → 2018-04-20 | Outpatient (CLI) | payer MEDICARE ==
[~2018-04-20] MED LIST: CARDIZEM CD120 MG PO; COLACE100 MG PO; ELIQUIS5 MG PO; FLECAINIDE ACET50 M1 PO; LEVOTHYROXINE100 MC1 PO; LIPITOR 20 MG T20 M1 PO; MULTAQ 400 MG400 MG PO; OMEPRAZOLE40 MG PO; PACERONE 200 M200 M1 PO; TYLENOL325 MG PO; ZOCOR 20 MG TAB20 M1 PO
[2018-04-20 10:30] LABS: INR 1.1; PROTIME 10.7 Seconds (9.20-11.50)
[2018-04-21 05:11] LABS: HEPATITIS B SURFACE AG Negative (Negative)
[2018-04-23 13:07] LABS: ANA INTERPRETATION Negative (Negative)
== END ==
LOC: M.MRI 07:46
PROVIDERS: Nurse Practitioner Family
DX: I31.3 Pericardial effusion (noninflammatory) (principal); K76.9 Liver disease, unspecified; I48.0 Paroxysmal atrial fibrillation; R79.89 Other specified abnormal findings of blood chemistry; E11.9 Type 2 diabetes mellitus without complications; J44.9 Chronic obstructive pulmonary disease, unspecified; I10 Essential (primary) hypertension; Z90.710 Acquired absence of both cervix and uterus; R93.8 Abnormal findings on diagnostic imaging of other specified body structures

== ENCOUNTER 2018-07-13 09:55 | Inpatient (IN) | payer MEDICARE ==
[~2018-07-13] VITALS: Ht 165.1 cm; Wt 76.7 kg
[2018-07-13] VITALS (7 sets, daily range): BP systolic 116–143; BP diastolic 61–82
[~2018-07-13 09:55] MED LIST changes: -LIPITOR 20 MG T20 M1 PO
[2018-07-13] MEDS ORDERED: LIPITOR 20 MG T20 M1 PO (13:06)
[2018-07-13 13:09] LABS: HEMATOCRIT 40.7 % (37.0-47.0); HEMOGLOBIN 13.7 gm/dL (12.0-15.0); MCH 32.1 pg (26.0-34.0); MCHC 33.7 g/dL (28.0-37.0); MCV 95.3 fL (80.0-100.0); MPV 9.5 fl. (7.2-11.1); RBC 4.26 mil/uL (4.20-5.00); WBC 6.1 thou/uL (4.0-11.0)
[2018-07-13 13:26] LABS: CALCIUM 8.6 mg/dL (8.5-10.1); CREATININE 1.3 mg/dL (0.6-1.3); POTASSIUM 3.9 mmol/L (3.5-5.1)
[2018-07-13 13:31] LABS: ALBUMIN 3.9 g/dL (3.4-5.0); TOTAL BILIRUBIN 0.6 mg/dL (<0.1-1.0); TOTAL PROTEIN 8.2 g/dL (6.4-8.2)
[2018-07-13 13:42] LABS: APTT 27.6 Seconds (25.0-31.3); PROTIME 10.7 Seconds (9.20-11.50)
--- NOTE | 2018-07-13 14:03 | EKG ---
[place] [address] ELECTROCARDIOGRAM REPORT Name: SHAWNEE MACARIO Room: [facility]#: [id number] Admission: 07/13/18 Attend Phys: Gonzalez Michelle MD, F Discharge: Date of : 49 Report #: [id number] THIS REPORT FOR: //name// [facility] Test Date: 2018-07-13 Test Time: 13:01:41 Pat Name: SHAWNEE MACARIO Department: Room: Gender: F Channel Sales Manager: [facility] : 1945 Requested By: Gonzalez Michelle Order Number: [id number] Stanislav MD: Gonzalez Michelle Measurements Intervals Elizabeth Rate: 50 P: 8 GA: 164 QRS: -56 QRSD: 106 T: 98 QT: 515 QTc: 470 Interpretive Statements Sinus bradycardia Abnormal R-wave progression, early transition Lateral leads are also involved Compared to ECG 03/10/2018 20:46:21 Atrial flutter no longer present Electronically Signed On 07-13-2018 14:03:30 CDT by Gonzalez Michelle [email or web address] <ELECTRONICALLY SIGNED> By: Gonzalez Michelle MD, [facility] 07/13/18 1403 1301 1301 Gonzalez Michelle MD, [facility] /EPI
--- NOTE | 2018-07-13 18:40 | NUR ---
RECEIVED REPORT FROM RESTAURANT CULINARY MANAGER. PT TRANSFERED TO [facility] FLOOR AROUND 1700. PT A&OX4. VSS. O2 SAT 91% ON RA. SOLE ROUGHER PLACED TRACING SR, PACEMAKER BOX CHECKED ON MONITOR. NO PACER SPIKES NOTED ON MONITOR. ADMISSION ASSESSMENT, HISTORY AND EDUCATION COMPLETED CHARTED. IV TO LEFT AC INTACT AND SALINE LOCKED. PT REPROTED LEFT CHEST/SHOULDER PAIN THAT IS BEING MANAGED WITH PO PAIN MEDICATION. AT BEDSIDE. PT ABLE TO EAT DINNER WITHOUT ISSUE. INCISION SITE TO LEFT CHEST WELL APPROXIMATED, PINK, HEALING, SEALED WITH DERMABOND. PT WEARING ARM SLING ON LEFT ARM. POST PROCEDURE VITALS PER CHARTING. PT ORIENTED TO ROOM, BED AND CALL LIGHT. PT CURRENTLY WATCHING TV IN BED. FALL PRECAUTIONS IN PLACE. CALL LIGHT IS WITHIN REACH. HOURLY ROUNDING PERFORMED. WCTM FOR DURATION OF SHIFT.
[2018-07-14] VITALS: BP 154/72
[2018-07-14 04:00] VITALS: BP 158/84
--- NOTE | 2018-07-14 04:54 | NUR ---
ALERT ORIENTED. UP INDEPENDENTLY. L ARM IN SLING. L CHEST WITH BRUSING AND DERMABONDED. TELEMETRY SHOWS SR. PAIN MEDICATION GIVEN TWICE FOR PAIN FROM PACEMAKER SITE.
--- NOTE | 2018-07-14 07:04 | NUR ---
PT HAD EPISOID OF NAUSIA W/ SM AMT EMESIS 10MLS. ZOFRAN ORDER OBTAINED AND GIVEN.
[2018-07-14 08:00] VITALS: BP 126/73
[2018-07-14 09:54] VITALS: BP 126/73
[2018-07-14 11:07] VITALS: BP 126/73
--- NOTE | 2018-07-14 11:52 | NUR ---
ASSUMED CARE OF PT THIS AM ASSESSED AND DOCUMENTED. SEE CHART. PT D/C'D TO HOME. EDUCATION GIVEN REGARDING MEDICATIONS, FOLLOW-UPS, AND DRS ORDERS. ALL BELONGINGS PACKED UP AND LEFT WITH PT ACCOMPANIED BY STADD AND . D/C'D IV AND CARDIAC MONITER.
--- NOTE | 2018-07-15 13:00 | H ---
[place] [address] HISTORY AND PHYSICAL Name: SHAWNEE MACARIO Room: [address] IN ..#: [id number] Admission: 07/13/18 Attend Phys: Gonzalez Michelle MD, F Discharge: 07/14/18 Date of : 49 Report #: [id number] THIS REPORT FOR: //name// CC: Gonzalez Vogel NP DATE OF SERVICE: 07/13/2018 HISTORY OF PRESENT ILLNESS: The patient is a 72-year-old white female who was brought to the outpatient department to undergo placement of a permanent pacemaker. The patient has no previous history of heart disease. She presented this past summer with atrial flutter and was admitted to Section. She had an abnormal nuclear stress test; however, heart catheterization showed minimal coronary artery disease with normal left ventricular function. She then underwent a BRIANNE and underwent cardioversion. She was started on Eliquis and flecainide. She was referred to Dr. Esposito for possible ablation. He attempted cardioversion, which was unsuccessful. She was switched to Multaq and then switched to amiodarone. She underwent repeat cardioversion near the end of April. She converted to sinus rhythm and unfortunately was noted to be significantly bradycardic. Recently, she has had no chest pain, but does note shortness of breath, fatigue and lightheadedness. She was brought to the outpatient department at this time to undergo placement of a permanent pacemaker. She just saw Dr. Esposito 2 weeks ago. At that time, she was in sinus bradycardia with a heart rate in the 40s. 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 She has hyperlipidemia, but no history of hypertension or diabetes. She has sleep apnea and uses CPAP. CURRENT MEDICATIONS: Includes Eliquis, Synthroid, diltiazem, atorvastatin, amiodarone, omeprazole. ALLERGIES: She has an allergy to PENICILLIN. FAMILY HISTORY: Her mother had heart disease. SOCIAL HISTORY: She is . She and her live in [place]. She stays active caring for grandchildren. No smoking or alcohol abuse. REVIEW OF SYSTEMS: She has had no history of stroke. She had asthma as a child. No history of peptic ulcer disease. No history of liver disease, kidney disease, cancer [place] [address] HISTORY AND PHYSICAL Name: SHAWNEE MACARIO Room: [address]#: [id number] Admission: 07/13/18 Attend Phys: Gonzalez Michelle MD, F Discharge: 07/14/18 Date of : 49 Report #: [id number] PHYSICAL EXAMINATION: GENERAL: Revealed a middle-aged female. VITAL SIGNS: Blood pressure 130/70, pulse is 50. HEENT: She is anicteric, conjunctiva pink. Mucous membranes moist. NECK: Veins nondistended. No carotid bruits. CHEST: Clear to auscultation. CARDIOVASCULAR: Regular, bradycardia, no significant murmur. ABDOMEN: Soft. EXTREMITIES: Had no edema. Dorsalis pedis pulse 2+ bilaterally. ECG shows sinus bradycardia. IMPRESSION AND RECOMMENDATIONS: 1. Paroxysmal atrial fibrillation. No structural heart disease. Currently in sinus bradycardia, on amiodarone. The patient's Eliquis is on hold because of need for pacemaker. 2. Sick sinus syndrome. Recommend pacemaker insertion. 3. Hyperlipidemia. The patient is on a statin drug. 4. Sleep apnea. The patient uses CPAP. <ELECTRONICALLY SIGNED> By: Tomi Pineda MD, FACC 07/15/18 1300 1352 1526Gonzalez Michelle MD, FACC /nt
--- NOTE | 2018-07-15 16:59 | EKG ---
[place] [address] ELECTROCARDIOGRAM REPORT Name: SHAWNEE MACARIO Room: [address] DIS IN ..#: [id number] Admission: 07/13/18 Attend Phys: Gonzalez Michelle MD, F Discharge: 07/14/18 Date of : 49 Report #: [id number] THIS REPORT FOR: //name// [facility] Test Date: 2018-07-14 Test Time: 08:10:26 Pat Name: SHAWNEE MACARIO Department: Room: [address] Gender: F Garbage Truck Helper: : 1945 Requested By: Gonzalez Michelle Order Number: [id number] Reading MD: Tomi Pineda Measurements Intervals [place] Rate: 77 P: VT: 160 QRS: -61 QRSD: 96 T: 65 QT: 468 QTc: 530 Interpretive Statements Atrial-paced complexes Left anterior fascicular block Abnormal R-wave progression, early transition Prolonged QT interval Compared to ECG 07/13/2018 13:01:41 Left anterior fascicular block now present Prolonged QT interval now present Sinus bradycardia no longer present Electronically Signed On 07-15-2018 16:59:30 CDT by Tomi Pineda [email or web address] <ELECTRONICALLY SIGNED> By: Tomi Pineda MD, FACC 07/15/18 1659 9 0810 Tomi Pineda MD, FAC /EPI
--- NOTE | 2018-07-15 16:59 | EKG ---
[place] [address] ELECTROCARDIOGRAM REPORT Name: SHAWNEE MACARIO Room: [address] DIS IN [facility].#: [id number] Admission: 07/13/18 Attend Phys: Gonzalez Michelle MD, F Discharge: 07/14/18 Date of : 49 Report #: [id number] THIS REPORT FOR: //name// [facility] Test Date: 2018-07-14 Test Time: 08:09:12 Pat Name: SHAWNEE MACARIO Department: Room: [address] Gender: F Pier Master Assistant: : 1945 Requested By: Gonzalez Michelle Order Number: [id number] Stanislav MD: Tomi Pineda Measurements Intervals [place] Rate: 61 P: KS: 179 QRS: -50 QRSD: 96 T: 77 QT: 492 QTc: 496 Interpretive Statements Atrial-paced rhythm Left anterior fascicular block Borderline low voltage, extremity leads Borderline prolonged QT interval Compared to ECG 07/13/2018 13:01:41 Left anterior fascicular block now present Sinus bradycardia no longer present Electronically Signed On 07-15-2018 16:59:25 CDT by Tomi Pineda [email or web address] <ELECTRONICALLY SIGNED> By: Tomi Pineda MD, FACC 07/15/18 1659 0809 0809 Tomi Pineda MD, FACC /EPI
--- NOTE | 2018-07-16 19:03 | CARD ---
[address] [address] CARDIAC CATH REPORT Name: SHAWNEE MACARIO Room: [address] IN ..#: [id number] Admission: 07/13/18 Attend Phys: Gonzalez Michelle MD, F Discharge: 07/14/18 Date of : 49 Report #: [id number] THIS REPORT FOR: //name// APPROVED REPORT Study performed: 07/13/2018 13:53:46 Patient Status: Out-Patient Room #: 231 Event Personnel: Marlyn Jj RN Professor Of Languages, Estella Barber Blick, David Retirement Assistant, Gemma Reed RN Monitor Exam: Insertion of Dual Chamber Permanent Pacemaker Indications: Sick Sinus Syndrome/Tachy Gold Syndrome The patient is a 72 year-old female with a history of Sick Sinus Syndrome. Patient Info Anticoagulant Therapy: eliquis Conscious Sedation Start time: 15:14 End Time: 16:51 Fentanyl 150 mcg Versed 6 mg Implanted Devices: permanent mri compatible dual chamber pacemaker and leads Procedure The patient underwent informed consent. We discussed the details of the procedure including the risks, which include, but not limited to bleeding, infection, vascular damage, cardiac perforation, and pneumothorax. She understood these risks and was willing to proceed. As such, she was brought to the EP/Cardiac Catheterization laboratory in a fasting and sedated state and prepped and draped in a The patient underwent conscious sedation, with no related complications. The patient was brought to the EP/Cardiac Catheterization laboratory and the left chest and shoulder were prepped and draped in a sterile manner. The left subclavian region was infiltrated with 2% Lidocaine with Epinephrine subcutaneous anesthesia. A transverse incision was made in the left upper chest cavity. The subcutaneous pocket was formed via blunt dissection. Percutaneous venous access was achieved and an introducer sheath was inserted into the left Subclavian vein. Sheaths were positions using the [place] [address] CARDIAC CATH REPORT Name: SHAWNEE MACARIO Room: [address]#: [id number] Admission: 07/13/18 Attend Phys: Gonzalez Michelle MD, F Discharge: 07/14/18 Date of : 49 Report #: [id number] Through the introducer sheaths the atrial and ventricular lead wires were positioned in the right atrial appendage and right ventricular apex respectively. Utilizing fluoroscopic guidance, the atrial and ventricular lead wires were advanced over the wires and positioned in the right atria and right ventricle respectively. Capturing and sensing thresholds were verified. Electrode Parameters P Wave: 3.5 mv R Wave: 8 mv Atrial Threshold: 1.0 v @ 0.4 ms Ventricular Threshold: 0.9 v @ 0.4 ms Atrial Resistance: 468 ohm Ventricular Resistance: 624 ohm Dual Chamber The atrial and ventricular leads were then secured using 0 silk sutures. The subcutaneous pocket was irrigated with vancomycin antibiotic solution.The atrial and ventricular leads were attached to the appropriate receptacles on the pulse generator and set screws firmly tightened to insure adequate contact and stability. The lead and pulse generator were placed into the subcutaneous pocket. Sharp and sponge counts were confirmed to be correct. At this time the pocket was closed subcutaneously with a 0 Vicryl and the skin was closed with a 4.0 Vicryl. The operative site was dressed in sterile fashion with skin affix and the patient was transferred to the floor in stable condition. Complications The patient tolerated the procedure well and there were no complications associated with the procedure. Conclusion successful placement of a dual chamber pacemaker and leads <ELECTRONICALLY SIGNED> By: Gonzalez Michelle MD, [facility] 07/16/181902 02 Dcory Michelle MD, FACC /INF
== END 2018-07-14 12:00 | disposition home or self-care (01) | DRG 243 ==
LOC: M.CL 09:55 → M.TBA-CV 17:08 → M.2W 17:17 → M.CL 07-20 11:30
PROVIDERS: ADMIT Internal Medicine Cardiovascular Disease
PROC: 0JH606Z Insertion of Pacemaker, Dual Chamber into Chest Subcutaneous Tissue and Fascia, Open Approach (ICD-10-PCS; principal; 2018-07-13)
PROC: 02HK3JZ Insertion of Pacemaker Lead into Right Ventricle, Percutaneous Approach (ICD-10-PCS; principal; 2018-07-13)
PROC: 02H63JZ Insertion of Pacemaker Lead into Right Atrium, Percutaneous Approach (ICD-10-PCS; principal; 2018-07-13)
DX: I49.5 Sick sinus syndrome (principal); I48.92 Unspecified atrial flutter; D68.69 Other thrombophilia; I48.0 Paroxysmal atrial fibrillation; J45.909 Unspecified asthma, uncomplicated; G47.30 Sleep apnea, unspecified; I25.10 Atherosclerotic heart disease of native coronary artery without angina pectoris; E78.5 Hyperlipidemia, unspecified; Z98.1 Arthrodesis status; Z79.899 Other long term (current) drug therapy; Z88.0 Allergy status to penicillin; Z82.49 Family history of ischemic heart disease and other diseases of the circulatory system; Z99.81 Dependence on supplemental oxygen

== ENCOUNTER → 2018-08-30 | Outpatient (CLI) | payer MEDICARE ==
[~2018-08-30] MED LIST changes: +LIPITOR 20 MG T20 M1 PO
== END ==
LOC: M.MRI 07:46
DX: G31.89 Other specified degenerative diseases of nervous system (principal); J32.9 Chronic sinusitis, unspecified; R41.3 Other amnesia

== ENCOUNTER → 2018-09-19 | Outpatient (CLI) | payer MEDICARE ==
[2018-09-19 14:36] LABS: DIRECT BILIRUBIN 0.1 mg/dL (<0.1-0.3); TOTAL BILIRUBIN 0.5 mg/dL (<0.1-1.0); TOTAL PROTEIN 7.8 g/dL (6.4-8.2)
== END ==
LOC: M.RAD 14:05
PROVIDERS: Internal Medicine Cardiovascular Disease
DX: M43.22 Fusion of spine, cervical region (principal); I48.91 Unspecified atrial fibrillation; R11.2 Nausea with vomiting, unspecified; Z79.899 Other long term (current) drug therapy

== ENCOUNTER 2018-10-07 10:37 | Emergency (ER) | payer MEDICARE ==
[~2018-10-07] VITALS: Ht 165.1 cm; Wt 82.1 kg
[2018-10-07] MEDS ORDERED: NORCO 5-325 TA1 EACH PO (11:37)
[2018-10-07 12:20] VITALS: BP 132/74
== END 2018-10-07 12:20 | disposition home or self-care (01) ==
LOC: M.ERS 10:37
DX: M54.5 Low back pain (principal); I48.91 Unspecified atrial fibrillation; Z88.1 Allergy status to other antibiotic agents; Z88.6 Allergy status to analgesic agent; Z90.710 Acquired absence of both cervix and uterus; Z98.890 Other specified postprocedural states

== ENCOUNTER 2018-12-07 14:05 | Emergency (ER) | payer MEDICARE ==
[~2018-12-07] VITALS: Ht 165.1 cm; Wt 80.7 kg
[~2018-12-07 14:05] MED LIST changes: +NORCO 5-325 TA1 EACH PO
[2018-12-07] MEDS ORDERED: WELLBUTRIN 75 M75 M1 PO (14:15)
[2018-12-07] MEDS ORDERED: NORCO 5-325 TA1 EACH PO (15:25)
[2018-12-07 15:38] VITALS: BP 144/70
== END 2018-12-07 15:39 | disposition home or self-care (01) ==
LOC: M.ERS 14:05
DX: S82.432A Displaced oblique fracture of shaft of left fibula, initial encounter for closed fracture (principal); I48.91 Unspecified atrial fibrillation; Z88.0 Allergy status to penicillin; Z88.1 Allergy status to other antibiotic agents; Z90.710 Acquired absence of both cervix and uterus; Z95.0 Presence of cardiac pacemaker; Z98.890 Other specified postprocedural states; W00.0XXA Fall on same level due to ice and snow, initial encounter; Y92.89 Other specified places as the place of occurrence of the external cause; Y93.89 Activity, other specified; Y99.8 Other external cause status

== ENCOUNTER → 2019-04-10 | Outpatient (CLI) | payer MEDICARE ==
[~2019-04-10] MED LIST changes: +WELLBUTRIN 75 M75 M1 PO
[2019-04-10 11:07] LABS: ALBUMIN 3.7 g/dL (3.4-5.0); DIRECT BILIRUBIN 0.1 mg/dL (<0.1-0.3); TOTAL BILIRUBIN 0.6 mg/dL (<0.1-1.0); TOTAL PROTEIN 7.3 g/dL (6.4-8.2)
== END ==
LOC: M.LAB 10:34
PROVIDERS: Internal Medicine Cardiovascular Disease
DX: R05 Cough (principal); I48.0 Paroxysmal atrial fibrillation; I10 Essential (primary) hypertension; Z79.899 Other long term (current) drug therapy; Z95.0 Presence of cardiac pacemaker

== ENCOUNTER → 2019-10-15 | Outpatient (CLI) | payer MEDICARE ==
[~2019-10-15] MED LIST changes: -CARDIZEM CD120 MG PO; +DILTIAZEM ER120 M2 PO; +DOXYCYCLINE 10100 MG PO; -LEVOTHYROXINE100 MC1 PO; +LEVOTHYROXINE112 MCG PO; -LIPITOR 20 MG T20 M1 PO; +LIPITOR40 MG PO; +LOSARTAN POTASS50 MG PO; +TYLENOL EXTRA500 MG PO; -TYLENOL325 MG PO; +VITAMIN D22000 UNIT PO
[2019-10-15 13:39] LABS: HEMATOCRIT 39.4 % (37.0-47.0); HEMOGLOBIN 13.5 gm/dL (12.0-15.0); MCH 32.2 pg (26.0-34.0); MCHC 34.3 g/dL (28.0-37.0); MCV 93.8 fL (80.0-100.0); MPV 10.3 fl. (7.2-11.1); RBC 4.2 mil/uL (4.20-5.00); RDW-CV 13.3 % (10.5-14.5)
[2019-10-15 13:43] LABS: APTT 26.1 Seconds (25.0-31.3); PROTIME 10.7 Seconds (9.20-11.50)
[2019-10-15 13:50] LABS: CALCIUM 8.9 mg/dL (8.5-10.1); CREATININE 1.2 mg/dL (0.6-1.3); POTASSIUM 4.1 mmol/L (3.5-5.1)
[2019-10-15 13:55] LABS: ALBUMIN 3.9 g/dL (3.4-5.0); DIRECT BILIRUBIN 0.1 mg/dL (<0.1-0.3); TOTAL BILIRUBIN 0.5 mg/dL (<0.1-1.0); TOTAL PROTEIN 7.4 g/dL (6.4-8.2)
--- NOTE | 2019-10-15 17:13 | CARD ---
[address] [address] CARDIAC CATH REPORT Name: SHAWNEE MACARIO Room: [facility]#: [id number] Admission: 10/15/19 Attend Phys: Tomi Pineda MD Discharge: Date of : 49 Report #: [id number] THIS REPORT FOR: //name// APPROVED REPORT Study performed: 10/15/2019 14:44:16 Patient Status: Out-Patient Room #: Event Personnel: Tomi Pineda Behavioral Health Tech, Keri Choudhary RTR Monitor, Kaylyn Marquez RN Bushwalking Guide, Godwin Ferrer RTR Scrub Exam: Revision of Pacemaker pocket The patient is a 73 year-old female with a history of . Conscious Sedation Start time: 15:32 End Time: 16:04 Fentanyl 100 mcg Versed 2 mg Procedure The patient underwent informed consent. We discussed the details of the procedure including the risks, which include, but not limited to bleeding, infection, vascular damage, cardiac perforation, and pneumothorax. The patient underwent conscious sedation, with no related complications. The patient was brought to the EP/Cardiac Catheterization laboratory and the left chest and shoulder were prepped and draped in a sterile manner. The left subclavian region was infiltrated with 2% Lidocaine with Epinephrine subcutaneous anesthesia. A transverse incision was made in the left upper chest cavity. The patient was brought to the Dynamometer Repairer for a left sided pacemaker pocket revision. After the skin was anesthetized with lidocaine and incision was made over the existing pacemaker. The device was explanted using electrocautery and blunt dissection. Once the device was explanted the pocket was enlarged medially. The pocket was flushed with antibody solution. The pacemaker was then replaced within the device pocket and secured with 0 silk suture. The lateral portion the pocket was closed using a single stitch of 0 silk suture. The device and pocket were flushed with a necrotic solution. The deep tissues were closed with 2-0 Vicryl. The skin incision was then closed with a single subcuticular stitch of 4-0 Vicryl. Several Steri-Strips were placed across the incision. A sterile Telfa dressing was then covered with a Tegaderm. The patient tolerated the procedure well without, [place] [address] CARDIAC CATH REPORT Name: SHAWNEE MACARIO Room: [facility]#: [id number] Admission: 10/15/19 Attend Phys: Tomi Pineda MD Discharge: Date of : 49 Report #: [id number] Complications The patient tolerated the procedure well and there were no complications associated with the procedure. Conclusion 1. Pain at existing pacemaker site. 2. Successful pocket revision. Recommendations 1. Follow-up site check in one week. 2. Doxycycline 100 mg by mouth twice a day for 5 days. <ELECTRONICALLY SIGNED> By: Tomi Pineda MD, FACC 10/15/191712 12 12Michaeanupam Pineda MD, FACC /INF
--- NOTE | 2019-10-16 09:16 | CARD ---
[address] [address] CARDIAC CATH REPORT Name: SHAWNEE MACARIO Room: [facility]#: [id number] Admission: 10/15/19 Attend Phys: Tomi Pineda MD Discharge: Date of : 49 Report #: [id number] THIS REPORT FOR: //name// CC: Tomi Haskinstings DATE OF SERVICE: 10/15/2019 PROCEDURE PERFORMED: Pacemaker pocket revision. INDICATION: The patient noted significant pain in the lateral aspect of her pacemaker pocket. DESCRIPTION OF PROCEDURE: After informed consent was obtained, the patient was brought to the cardiac catheterization lab. The area of the left chest was prepped and draped in sterile fashion. Local anesthesia was achieved with 1% lidocaine. After an initial incision was made, the pacemaker device was explanted from the existing pocket. The medial aspect of the pocket was opened and the pocket expanded more medially. The pacemaker generator was then secured within the new region of the pocket with the designated port and 0-silk suture. The lateral aspect of the pocket was closed with a single stitch of 0-silk suture. The pocket and device were then flushed with antibiotic solution. The deep tissues were closed with interrupted stitches of 2-0 Vicryl. The skin incision was then closed with a single subcuticular stitch of 4-0 Vicryl. Several Steri-Strips were placed across the incision. A sterile Telfa dressing was then covered with a Tegaderm. The patient tolerated the procedure well without complication. IMPRESSION: 1. Pain at the pacemaker site. 2. Successful revision of pacemaker pocket. RECOMMENDATION: Followup site check in 1 week. <ELECTRONICALLY SIGNED> By: Tomi Pineda MD, FACC 10/16/19 0916 [id number] [id number] Pineda MD, FACC /nt
== END | disposition home or self-care (01) ==
LOC: M.CL 11:24
PROVIDERS: Internal Medicine Cardiovascular Disease
DX: T82.847A Pain due to cardiac prosthetic devices, implants and grafts, initial encounter (principal); L90.5 Scar conditions and fibrosis of skin; I48.91 Unspecified atrial fibrillation; I25.10 Atherosclerotic heart disease of native coronary artery without angina pectoris; I48.92 Unspecified atrial flutter; Z98.890 Other specified postprocedural states; Z79.899 Other long term (current) drug therapy; Z88.0 Allergy status to penicillin; Z88.8 Allergy status to other drugs, medicaments and biological substances; Z79.01 Long term (current) use of anticoagulants; Y83.8 Other surgical procedures as the cause of abnormal reaction of the patient, or of later complication, without mention of misadventure at the time of the procedure

== ENCOUNTER 2019-10-18 06:20 | Emergency (ER) | payer MEDICARE ==
[~2019-10-18] VITALS: Ht 165.1 cm; Wt 78.5 kg
[2019-10-18 06:26] VITALS: BP 142/76
[2019-10-18] MEDS ORDERED: CORTISPORIN OIN15 GM TOP ×2 (06:36→06:37)
== END 2019-10-18 06:40 | disposition home or self-care (01) ==
LOC: M.ERS 06:20
DX: L25.9 Unspecified contact dermatitis, unspecified cause (principal); I48.91 Unspecified atrial fibrillation; Z88.1 Allergy status to other antibiotic agents; Z88.0 Allergy status to penicillin; Z98.890 Other specified postprocedural states; Z90.710 Acquired absence of both cervix and uterus

== ENCOUNTER 2019-12-14 13:22 | Emergency (ER) | payer MEDICARE ==
[~2019-12-14] VITALS: Ht 165.1 cm; Wt 78.5 kg
[~2019-12-14 13:22] MED LIST changes: +CORTISPORIN OIN15 GM TOP
[2019-12-14] MEDS ORDERED: ERYTHROMYCIN E3.5 G2 OPHTHALMIC (13:37)
[2019-12-14 13:47] VITALS: BP 128/53
== END 2019-12-14 13:47 | disposition home or self-care (01) ==
LOC: M.ERS 13:22
DX: H10.9 Unspecified conjunctivitis (principal); I48.91 Unspecified atrial fibrillation; Z95.0 Presence of cardiac pacemaker; Z98.890 Other specified postprocedural states; Z88.0 Allergy status to penicillin; Z88.8 Allergy status to other drugs, medicaments and biological substances

== ENCOUNTER 2020-02-20 16:57 | Observation (INO) | payer MEDICARE ==
[~2020-02-20] VITALS: Ht 165.1 cm; Wt 82.6 kg
[~2020-02-20 16:57] MED LIST changes: +ERYTHROMYCIN E3.5 G2 OPHTHALMIC; -VITAMIN D22000 UNIT PO; +VITAMIN D3-ALO1 EACH PO
[2020-02-20 17:06] VITALS: BP 167/79
[2020-02-20 17:23] LABS: ABSOLUTE BASOPHILS 0.2 thou/uL (0.0-0.2); ABSOLUTE EOSINOPHILS 0.2 thou/uL (0.0-0.7); ABSOLUTE LYMPHOCYTES 3.2 thou/uL (0.8-5.3); ABSOLUTE MONOCYTES 0.9 thou/uL (0.0-1.2); ABSOLUTE NEUTROPHILS 4.5 thou/uL (1.6-8.1); BASOPHILS 2.1 %; EOSINOPHILS 2.4 %; HEMATOCRIT 39.8 % (37.0-47.0); HEMOGLOBIN 13.7 gm/dL (12.0-15.0); LYMPHOCYTES 36.1 %; MCH 32.2 pg (26.0-34.0); MCHC 34.5 g/dL (28.0-37.0); MCV 93.3 fL (80.0-100.0); MONOCYTES 9.7 %; MPV 10.2 fl. (7.2-11.1); NUCLEATED RBCS 0 /100WBC; PLATELET COUNT* 213 thou/uL (150-400); POLYS 49.7 %; RBC 4.26 mil/uL (4.20-5.00); RDW-CV 13.8 % (10.5-14.5)
[2020-02-20 17:34] LABS: CALCIUM 8.1 mg/dL (8.5-10.1); CREATININE 1.5 mg/dL (0.6-1.3); POTASSIUM 3.7 mmol/L (3.5-5.1)
[2020-02-20 17:36] LABS: APTT 28.2 Seconds (25.0-31.3); INR 1.1; PROTIME 11.5 Seconds (9.20-11.50)
[2020-02-20 17:46] LABS: ALBUMIN 3.9 g/dL (3.4-5.0); CK-MB MASS 1.5 ng/mL (<0.5-3.6); MAGNESIUM 1.9 mg/dL (1.8-2.4); TOTAL BILIRUBIN 0.5 mg/dL (<0.1-1.0); TOTAL PROTEIN 7.5 g/dL (6.4-8.2)
--- NOTE | 2020-02-20 19:02 | NUR ---
CARDIAC ASSESSMENT WAS PERFORMED AT 1715 ERROR ON TIME IT WAS DOCUMENTED
[2020-02-20 20:00] VITALS: BP 151/60
[2020-02-20 20:05] VITALS: BP 130/67
[2020-02-21 00:25] VITALS: BP 133/63
[2020-02-21 04:36] VITALS: BP 134/65
[2020-02-21 05:14] LABS: ALBUMIN 3.6 g/dL (3.4-5.0); CALCIUM 8.1 mg/dL (8.5-10.1); CREATININE 1.3 mg/dL (0.6-1.3); MAGNESIUM 1.9 mg/dL (1.8-2.4); PHOSPHORUS* 3.7 mg/dL (2.5-4.9); POTASSIUM 3.3 mmol/L (3.5-5.1)
--- NOTE | 2020-02-21 06:01 | NUR ---
PATIENT ARRIVED ON FLOOR FROM ER AT ABOUT 1999. PATIENT ADMISSION HISTORY AND ASSESSMENT WAS COMPLETED CHARTED. PATIENT HAS HAD NO COMPLAINTS OF CHEST PAIN OR PRESSURE. IV REMAINS SALINE LOCKED. WILL CONTINUE TO MONITOR.
[2020-02-21 08:00] VITALS: BP 134/69
--- NOTE | 2020-02-21 10:51 | EKG ---
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 : 1945 Requested By: Dav Hooker Order Number: [id number] MD: Gonzalez Michelle Measurements Intervals [place] Rate: 76 P: -60 AR: 140 QRS: -50 QRSD: 89 T: 193 QT: 515 QTc: 580 Interpretive Statements atrial paced rhythm Left anterior fascicular block Abnormal R-wave progression, early transition Nonspecific T abnrm, anterolateral leads Prolonged QT interval Compared to ECG 07/14/2018 08:10:26 no change Electronically Signed On 02-21-2020 10:50:22 CDT by Gonzalez Michelle [email or web address] <ELECTRONICALLY SIGNED> By: Gonzalez Michelle MD, [facility] 02/21/20 1050 00 00 Gonzalez Michelle MD, [facility] /EPI
--- NOTE | 2020-02-21 11:09 | NUR ---
ASSUMED PT CARE AT 0730, PT SITTING UP IN BED, A&OX4, SATTING 96% ON RA AND STATES SHE IS READY TO GO HOME. PT HAS NO C/O CHEST PAIN OR SHORTNESS OF BREATH. POTASSIUM IS BEING REPLACED PER E'LYTE PROTOCOL PRIOR TO DC TODAY. CARDIOLOGY SAW PT AND CLEARED HER FOR DC. AM ASSESSMENT CHARTED, MEDS PER DEC, WILL CONTINUE POC.
[2020-02-21 12:09] VITALS: BP 134/69
--- NOTE | 2020-02-21 13:04 | NUR ---
DISCHARGE ORDERS RECEIVED. DISCHARGE INSTRUCTIONS, CARE NOTES AND F/U GIVEN TO PT. PT COMMUNICATES UNDERSTANDING OF DC TEACHING. IV AND ELIGIBILITY COUNSELOR REMOVED. PT DC W/ ALL BELONGINGS AND PAPERWORK VIA WHEELCHAIR W/ NURSING STAFF TO SPOUSE PERSONAL VEHICLE.
--- NOTE | 2020-02-21 15:17 | CON ---
[address] [address] CONSULTATION Name: SHAWNEE MACARIO Room: [address] Peter Felix#: [id number] Admission: 02/20/20 Attend Phys: Paola Loaiza Discharge: 02/21/20 Date of : 49 Report #: [id number] THIS REPORT FOR: //name// cc: Ana Laura Vogel NP, Stefany NP ~ THIS REPORT FOR: //name// CC: Paola Tijerina NP DATE OF SERVICE: 02/21/2020 CARDIOLOGY CONSULTATION HISTORY OF PRESENT ILLNESS: The patient is a 74-year-old white female who I was asked to see in the hospital today after she complained of feeling weak. The patient has an extensive past medical history. She presented in 2017 with atrial flutter. She had an abnormal nuclear stress test. I actually performed a cardiac catheterization in 02/2018 that showed only mild coronary artery disease with 60% narrowing of the diagonal branch of the LAD, 30% narrowing of the distal LAD and the right coronary artery had 30% stenosis. Her echocardiogram showed an ejection fraction of 60%. She underwent a BRIANNE and was cardioverted and placed on Eliquis and flecainide. She was referred to Dr. Esposito for possible ablation. He attempted cardioversion, which was unsuccessful and she was switched to Multaq and eventually to amiodarone. She had repeat cardioversion and eventually converted back to sinus rhythm. However, on amiodarone she was significantly bradycardic and I performed placement of a permanent dual chamber pacemaker in 06/2018. Recently, she has been followed by my partner, Dr. Pineda. She actually just saw Dr. Pineda in September. She was having only rare episodes of atrial fibrillation. She has been chronically anticoagulated and has had no bleeding. She was doing well, going for walks until last couple of days, she felt weak. She noticed her heart beating irregular. She had some chest discomfort, short of breath. Her brought her to the Emergency Room yesterday and she was admitted. She denied the pain being related to food. There is no radiation of the pain. She denied any bleeding. She denied any fever or cough. She has had no syncope. She is admitted for further evaluation and treatment. PAST MEDICAL HISTORY: She has had carpal tunnel surgery, ear surgery, knee surgery and neck surgery. She has a history of hypertension, hyperlipidemia. CURRENT MEDICATIONS: Include amiodarone, Lipitor, diltiazem, Eliquis, Synthroid, losartan, omeprazole. ALLERGIES: SHE HAS [place] [address] CONSULTATION Name: MACARIOSHAWNEE S Room: [address] Peter Felix#: [id number] Admission: 02/20/20 Attend Phys: Paola Loaiza Discharge: 02/21/20 Date of : 49 Report #: [id number] FAMILY HISTORY: Her father had heart disease. SOCIAL HISTORY: She is . She and her live in [place]. Nonsmoker, nonalcohol. REVIEW OF SYSTEMS: No history of stroke, asthma, peptic ulcer disease, liver disease, kidney disease, cancer, psychiatric illness, chronic skin condition. PHYSICAL EXAMINATION: GENERAL: Revealed an elderly female lying in bed. She appeared in no distress. VITAL SIGNS: She had a blood pressure 130/60, pulse 60. She was afebrile. HEENT: She was anicteric. Conjunctivae pink. Mucous membranes moist. NECK: Veins nondistended. No carotid bruits. Neck supple. CHEST: Clear to auscultation. CARDIOVASCULAR: Regular rate and rhythm. No significant murmur. ABDOMEN: Soft. EXTREMITIES: Had no edema. SKIN: Warm, dry. NEUROLOGIC: Nonfocal. LABORATORY AND DIAGNOSTIC DATA: ECG shows what appears to represent an atrial paced rhythm, left axis deviation, nonspecific T-wave changes. Her workup in the Emergency Room last night, she had a portable chest x-ray, normal heart size and clear lung lino. Her laboratory: Sodium 143, potassium 3.3, creatinine 1.3, SGOT 50, SGPT 80, her troponin 0.06, BNP 439, TSH 0.6. Her white blood cell count 9.0, hemoglobin 13.7. IMPRESSION AND RECOMMENDATIONS: 1. Complained of fatigue. Reason unclear. The patient noted to have normal thyroid function studies. She is not anemic. There is no fever. Suspect secondary to exercise intolerance. 2. History of atrial fibrillation. I will continue amiodarone. The patient is anticoagulated with Eliquis. 3. Hypertension. The patient is on a calcium brooks. 4. Hyperlipidemia. The patient is on a statin drug. 5. Sick sinus syndrome. The patient atrial paced. 6. Sleep apnea. The patient uses CPAP. 7. Mild carotid stenosis. No symptoms of TIA. <ELECTRONICALLY SIGNED> By: Gonzalez Michelle MD, [facility] 02/21/20 1517 0827 [id number] Jimena Michelle MD, [facility] /nt
== END 2020-02-21 13:00 | disposition home or self-care (01) ==
LOC: M.ERS 16:57 → M.TBA-ER 18:10 → M.2W 18:10
PROVIDERS: Family Medicine; ADMIT Family Medicine
DX: R07.2 Precordial pain (principal); I48.0 Paroxysmal atrial fibrillation; E03.9 Hypothyroidism, unspecified; E78.5 Hyperlipidemia, unspecified; I10 Essential (primary) hypertension; K21.9 Gastro-esophageal reflux disease without esophagitis; F41.0 Panic disorder [episodic paroxysmal anxiety]; G47.33 Obstructive sleep apnea (adult) (pediatric); I49.5 Sick sinus syndrome; I48.92 Unspecified atrial flutter; Z79.01 Long term (current) use of anticoagulants; Z95.0 Presence of cardiac pacemaker

== ENCOUNTER → 2020-05-20 | Outpatient (CLI) | payer MEDICARE ==
[2020-05-20 11:12] LABS: CALCIUM 8.4 mg/dL (8.5-10.1); CREATININE 1.4 mg/dL (0.6-1.3); POTASSIUM 4.5 mmol/L (3.5-5.1)
== END ==
LOC: M.LAB 10:44
PROVIDERS: ATTEND Nurse Practitioner
DX: I48.91 Unspecified atrial fibrillation (principal)

== ENCOUNTER 2020-05-29 06:03 | Emergency (ER) | payer MEDICARE ==
[~2020-05-29] VITALS: Ht 165.1 cm; Wt 80.7 kg
[2020-05-29 06:39] LABS: URINE BILIRUBIN NEGATIVE (Negative); URINE BLOOD TRACE (Negative); URINE CLARITY CLEAR; URINE COLOR YELLOW; URINE GLUCOSE-RANDOM NEGATIVE (Negative); URINE KETONES NEGATIVE (Negative); URINE LEUKOCYTES-REFLEX TRACE (Negative); URINE NITRITE-REFLEX NEGATIVE (Negative); URINE PROTEIN NEGATIVE (Negative); URINE SPECIFIC GRAVITY >= 1.030 (1.005-1.030); URINE UROBILINOGEN 0.2 E.U./dl (0.2-1.0)
[2020-05-29] MEDS ORDERED: CARTIA XT120 M1 PO (06:42)
[2020-05-29] MEDS ORDERED: BUSPIRONE HCL5 MG PO (06:44)
[2020-05-29 06:45] LABS: BACTERIA-REFLEX >30 Many /HPF (None Seen); SQUAMOUS 4-10 Moderate /LPF (0-3); URINE RBC None Seen /HPF (0-2); URINE WBC-REFLEX 0-5 Rare /HPF (0-5)
[2020-05-29 06:46] LABS: CASTS None Seen /LPF (None Seen); CRYSTALS None Seen /LPF (None Seen); MUCUS 4-6 Moderate strn/LPF (None Seen)
[2020-05-29 06:53] LABS: ABSOLUTE BASOPHILS 0.1 thou/uL (0.0-0.2); ABSOLUTE EOSINOPHILS 0.1 thou/uL (0.0-0.7); ABSOLUTE LYMPHOCYTES 1.5 thou/uL (0.8-5.3); ABSOLUTE MONOCYTES 0.6 thou/uL (0.0-1.2); ABSOLUTE NEUTROPHILS 3.6 thou/uL (1.6-8.1); EOSINOPHILS 2.4 %; HEMATOCRIT 40.2 % (37.0-47.0); HEMOGLOBIN 13.9 gm/dL (12.0-15.0); LYMPHOCYTES 25.3 %; MCH 32.8 pg (26.0-34.0); MCHC 34.5 g/dL (28.0-37.0); MCV 95.2 fL (80.0-100.0); MONOCYTES 10.3 %; MPV 9.2 fl. (7.2-11.1); NUCLEATED RBCS 0 /100WBC; PLATELET COUNT* 197 thou/uL (150-400); RBC 4.22 mil/uL (4.20-5.00); RDW-CV 13.6 % (10.5-14.5)
[2020-05-29 07:02] LABS: CALCIUM 8.4 mg/dL (8.5-10.1); CREATININE 1.4 mg/dL (0.6-1.3); POTASSIUM 3.9 mmol/L (3.5-5.1)
[2020-05-29 07:06] LABS: ALBUMIN 4.1 g/dL (3.4-5.0); TOTAL BILIRUBIN 0.7 mg/dL (<0.1-1.0); TOTAL PROTEIN 7.8 g/dL (6.4-8.2)
[2020-05-29] MEDS ORDERED: HYDROCODON-ACE1 EAC8 PO (07:16)
[2020-05-29] MEDS ORDERED: ACYCLOVIR 400400 MG PO (07:16)
[2020-05-29] MEDS ORDERED: LYRICA 50 MG50 MG PO (07:16)
[2020-05-29 07:40] VITALS: BP 130/92
--- NOTE | 2020-05-29 09:41 | EKG ---
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[place] : 1945 Requested By: Colette Tucker Order Number: [id number] Reading MD: Gonzalez Michelle Measurements Intervals [place] Rate: 81 P: 45 NE: 206 QRS: -19 QRSD: 103 T: -18 QT: 508 QTc: 590 Interpretive Statements Atrial-paced complexes Borderline left axis deviation Borderline low voltage, extremity leads Abnormal R-wave progression, late transition Nonspecific repol abnormality, diffuse leads Prolonged QT interval Compared to ECG 02/20/2020 17:01:16 no change Electronically Signed On 05-29-2020 9:41:17 CDT by Gonzalez Michelle [email or web address] <ELECTRONICALLY SIGNED> By: oGnzalez Michelle MD, FAC 05/29/20 0941 0637 0637 Gonzalez Michelle MD, FAC /EPI
== END 2020-05-29 07:42 | disposition home or self-care (01) ==
LOC: M.ERS 06:03
PROVIDERS: Emergency Medicine
DX: B02.9 Zoster without complications (principal); I48.91 Unspecified atrial fibrillation; Z98.890 Other specified postprocedural states; Z95.0 Presence of cardiac pacemaker; Z90.710 Acquired absence of both cervix and uterus; Z88.0 Allergy status to penicillin; Z88.8 Allergy status to other drugs, medicaments and biological substances

== ENCOUNTER → 2020-09-07 | Outpatient (CLI) | payer MEDICARE ==
[~2020-09-07] MED LIST changes: +ACYCLOVIR 400400 MG PO; +BIOTIN5 M1 PO; +BUSPIRONE HCL5 MG PO; +CARTIA XT120 M1 PO; +GABAPENTIN600 M1 PO; +HYDROCODON-ACE1 EAC8 PO; +HYDROXYZINE HCL25 M2 PO; +LIDOCAINE PLUS120 GM TOP; +LYRICA 50 MG50 MG PO; +VITAMIN D31250 MC1 PO; +VITAMIN D350 MC3 PO
[2020-09-07 10:58] LABS: DIRECT BILIRUBIN 0.2 mg/dL (<0.1-0.3); TOTAL BILIRUBIN 0.6 mg/dL (<0.1-1.0); TOTAL PROTEIN 7.6 g/dL (6.4-8.2)
== END ==
LOC: M.LAB 10:15
PROVIDERS: ATTEND Internal Medicine Cardiovascular Disease
DX: J98.4 Other disorders of lung (principal); Z79.899 Other long term (current) drug therapy

== ENCOUNTER → 2021-10-28 | Outpatient (CLI) | payer MEDICARE ==
[2021-10-28 07:55] VITALS: BP 141/78
--- NOTE | 2021-11-04 13:21 | CARD ---
[address] [address] CARDIAC CATH REPORT Name: SHAWNEE MACARIO Room: [facility]#: [id number] Admission: 10/28/21 Attend Phys: Tomi Pineda MD Discharge: Date of : 49 Report #: [id number] THIS REPORT FOR: cc: Ana Laura Vogel Stefany RNP Liston, Michael J. MD [facility] ~ cc: GYPSY Lawler DATE OF SERVICE: 10/28/2021 CARDIAC PROCEDURE PROCEDURE: DC cardioversion. INDICATION: Persistent atrial fibrillation. DESCRIPTION OF PROCEDURE: After informed consent was obtained, the patient was brought to the cardiac holding area. Upon attaching the patient to the flower grower, she was noted to be in sinus rhythm. No further procedure was carried out. IMPRESSION: 1. Persistent atrial fibrillation with spontaneous conversion to sinus rhythm prior to direct-current cardioversion. 2. Keep followup with Cardiology as scheduled. <ELECTRONICALLY SIGNED> By: Tomi Pineda MD, FACC 11/04/21 1321 0848 [id number] MD, FACC /nt
--- NOTE | 2021-11-04 15:20 | NUR ---
PATIENT WAS IN NORMAL SINUS RHYTHM WHEN ARRIVED TO DEPARTMENT. NO PROCEDURE WAS PERFORMED.
== END | disposition home or self-care (01) ==
LOC: M.CL 07:34
PROVIDERS: ATTEND Internal Medicine Cardiovascular Disease
DX: I48.19 Other persistent atrial fibrillation (principal); Z53.8 Procedure and treatment not carried out for other reasons; I49.5 Sick sinus syndrome; I10 Essential (primary) hypertension; E78.2 Mixed hyperlipidemia; I25.10 Atherosclerotic heart disease of native coronary artery without angina pectoris; Z98.890 Other specified postprocedural states; Z79.899 Other long term (current) drug therapy; Z95.0 Presence of cardiac pacemaker; Z79.01 Long term (current) use of anticoagulants; Z88.0 Allergy status to penicillin; Z88.8 Allergy status to other drugs, medicaments and biological substances

== ENCOUNTER → 2021-12-16 | Outpatient (CLI) | payer MEDICARE ==
[~2021-12-16] MED LIST changes: +LEVOXYL88 MCG PO
[2021-12-16 09:33] VITALS: BP 142/86
--- NOTE | 2021-12-16 13:02 | EKG ---
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: : 1945 Requested By: Tomi Pineda Order Number: [id number] Reading MD: Gonzalez Michelle Measurements Intervals [place] Rate: 67 P: VT: 147 QRS: -73 QRSD: 110 T: -38 QT: 459 QTc: 485 Interpretive Statements Atrial-paced rhythm Left anterior fascicular block Abnormal T, consider ischemia, diffuse leads Baseline wander in lead(s) V6 Compared to ECG 05/29/2020 06:37:36 Left anterior fascicular block now present Prolonged QT interval no longer present Electronically Signed On 12-16-2021 13:02:01 PEER COUNSELOR by Gonzalez Michelle [email or web address] <ELECTRONICALLY SIGNED> By: Gonzalez Michelle MD, FACC 12/16/21 1302 0932 0932 Gonzalez Michelle MD, [facility] /EPI
== END ==
LOC: M.CL 06:42
PROVIDERS: ATTEND Internal Medicine Cardiovascular Disease
DX: I48.0 Paroxysmal atrial fibrillation (principal); Z53.8 Procedure and treatment not carried out for other reasons; I25.10 Atherosclerotic heart disease of native coronary artery without angina pectoris; E78.2 Mixed hyperlipidemia; I65.23 Occlusion and stenosis of bilateral carotid arteries; Z79.01 Long term (current) use of anticoagulants; Z95.0 Presence of cardiac pacemaker; Z79.899 Other long term (current) drug therapy; Z98.890 Other specified postprocedural states